=== PATIENT | male | born 1985 | race Caucasian/White ===

== ENCOUNTER 2017-07-29 01:49 | Emergency (ER) | payer SELFPAY ==
[2017-07-29] MEDS ORDERED: ACETYLCYSTEINE 20% SOLN 6000 MG/30 ML VIAL PO ONE (01:54)
--- NOTE | 2017-07-29 02:07 | ER Document Report ---
ED Substance Abuse / Acc. OD - General Chief Complaint: Overdose Stated Complaint: POSSIBLE OVERDOSE Time Seen by Provider: 07/29/17 01:54 Mode of Arrival: Medic Information source: Patient Notes: Patient is a 32-year-old male who presents to the ER today for taking 30-40 Tylenol after drinking multiple beers tonight. Friend states that he has tried to harm himself in the past, they also state that he has been talking about killing himself all night tonight. When I asked him why he took 70 Tylenol he states "I just wanted to get rid of a headache." He denies suicidal or homicidal ideations. Friends disagree. - Related Data Allergies/Adverse Reactions: No Known Allergies Allergy (Verified 07/29/17 09:22) Past Medical History - General Information source: Patient - Social History Smoking Status: Current Every Day Smoker Family History: Reviewed & Not Pertinent Review of Systems - Review of Systems Constitutional: No symptoms reported EENT: No symptoms reported Cardiovascular: No symptoms reported Respiratory: No symptoms reported Gastrointestinal: No symptoms reported Genitourinary: No symptoms reported Male Genitourinary: No symptoms reported Musculoskeletal: No symptoms reported Skin: No symptoms reported Hematologic/Lymphatic: No symptoms reported Neurological/Psychological: See HPI Physical Exam - Vital signs Vitals: Temp Pulse Resp BP Pulse Ox 97.8 F 92 16 131/88 H 97 07/29/17 01:51 07/29/17 01:51 07/29/17 01:51 07/29/17 01:51 07/29/17 01:51 - Notes Notes: PHYSICAL EXAMINATION: GENERAL: Angry, acutely intoxicated, in no acute distress. HEAD: Atraumatic, normocephalic. EYES: Pupils equal round and reactive to light, extraocular movements intact, sclera anicteric, conjunctiva are normal. ENT: ear canals without erythema or foreign body, TMs pearly schwab with good bony landmarks, nares patent, oropharynx clear without exudates. Moist mucous membranes. Airway patent NECK: Normal range of motion, supple without lymphadenopathy LUNGS: CTAB and equal. No wheezes rales or rhonchi. HEART: Regular rate and rhythm without murmurs ABDOMEN: Soft, no tenderness. No guarding, no rebound BACK: no vertebral tenderness, normal ROM GI/: no CVA tenderness EXTREMITIES: Normal range of motion, no pitting edema. No cyanosis. NEUROLOGICAL: Cranial nerves grossly intact. Normal sensory/motor exams. PSYCH: Agitated SKIN: Warm, Dry, normal turgor, no rashes or lesions noted Course - Re-evaluation Re-evalutation: 07/29/17 06:46 Patient was given acetylcysteine on arrival due to history of taking approximately 30-40 Tylenol that he told paramedics about. Tylenol levels on arrival and after 4 hours were less than 10. Salicylate levels also less than 10, alcohol 228. Patient is very agitated the entire time here and required Benadryl, Haldol and Ativan to stop harassing staff and threatening friends and staff. Friends insist that if I release him he will kill himself. 07/29/17 21:56 - Vital Signs Vital signs: Temp Pulse Resp BP Pulse Ox 97.4 F 73 18 103/46 L 95 07/29/17 09:58 07/29/17 09:58 07/29/17 09:58 07/29/17 09:58 07/29/17 09:58 - Laboratory Result Diagrams: 07/29/17 01:50 07/29/17 01:50 Laboratory results interpreted by me: 07/29/17 07/29/17 07/29/17 01:50 01:50 05:40 WBC 10.6 H Sodium 150.4 H Chloride 109 H Glucose 111 H Total Protein 8.4 H Salicylates < 1.0 L Acetaminophen < 10 L < 10 L Discharge - Discharge Clinical Impression: Suicidal ideations Alcohol intoxication Qualifiers: Complication of substance-induced condition: uncomplicated Qualified Code(s): F10.920 - Alcohol use, unspecified with intoxication, uncomplicated Condition: Stable Disposition: PSYCH HOSP/UNIT
[2017-07-29 02:09] LABS: ABSOLUTE BASOPHILS # (AUTO) 0.1 10^3/uL (0.0-0.2); ABSOLUTE EOSINOPHILS # (AUTO) 0.6 10^3/uL (0.0-0.6); ABSOLUTE LYMPHOCYTES (AUTO) 3.9 10^3/uL (0.5-4.7); ABSOLUTE MONOCYTES (AUTO) 0.6 10^3/uL (0.1-1.4); ABSOLUTE NEUT (AUTO) 5.4 10^3/uL (1.7-8.2); BASOPHILS % (AUTO) 1.1 % (0-2); EOSINOPHILS % (AUTO) 5.3 % (0-6); HEMATOCRIT 46.5 % (37.9-51.0); HEMOGLOBIN 16.4 g/dL (13.5-17.0); LYMPHOCYTES % (AUTO) 37.1 % (13-45); MEAN CORPUSCULAR HEMOGLOBIN 33.1 pg (27.0-33.4); MEAN CORPUSCULAR HGB CONC 35.4 g/dL (32.0-36.0); MEAN CORPUSCULAR VOLUME 94 fl (80-97); MONOCYTES % (AUTO) 5.7 % (3-13); PLATELET COUNT 234 10^3/uL (150-450); RED BLOOD COUNT 4.96 10^6/uL (4.35-5.55); RED CELL DISTRIBUTION WIDTH 12.3 % (11.5-14.0); SEGMENTED NEUTROPHILS % (AUTO) 50.8 % (42-78); TOTAL CELLS COUNTED % (AUTO) 100 %; WHITE BLOOD COUNT 10.6 10^3/uL (4.0-10.5)
[2017-07-29 02:17] LABS: APPEARANCE,URINE CLEAR; BILIRUBIN,URINE NEGATIVE (NEGATIVE); COLOR,URINE COLORLESS; GLUCOSE, URINE NEGATIVE (NEGATIVE); KETONES,URINE NEGATIVE (NEGATIVE); LEUKOCYTE ESTERASE,URINE NEGATIVE (NEGATIVE); NITRITE,URINE NEGATIVE (NEGATIVE); PROTEIN,URINE NEGATIVE (NEGATIVE); URINE SPECIFIC GRAVITY 1.002; UROBILINOGEN,URINE NEGATIVE mg/dL (<2.0)
[2017-07-29 02:27] LABS: ALANINE AMINOTRANSFERASE 30 U/L (21-72); ALCOHOL 228 mg/dL (NONE DETECTED); ALKALINE PHOSPHATASE 61 U/L (38-126); ANION GAP 15 (5-19); ASPARTATE AMINO TRANSFERASE 24 U/L (17-59); BILIRUBIN,DIRECT 0.4 mg/dL (0.0-0.4); BILIRUBIN,TOTAL 0.5 mg/dL (0.2-1.3); BLOOD UREA NITROGEN 9 mg/dL (7-20); CALCIUM 9.8 mg/dL (8.4-10.2); CARBON DIOXIDE 26 mmol/L (22-30); CHLORIDE 109 mmol/L (98-107); GLUCOSE 111 mg/dL (75-110); POTASSIUM 4.3 mmol/L (3.6-5.0); SODIUM 150.4 mmol/L (137-145); TOTAL PROTEIN 8.4 g/dL (6.3-8.2)
[2017-07-29] MEDS ORDERED: ZIPRASIDONE HCL 20 MG CAPSULE PO ONE (02:27)
[2017-07-29 02:28] LABS: ACETAMINOPHEN < 10 ug/mL (10-30); SALICYLATE < 1.0 mg/dL (2.0-20.0)
[2017-07-29 02:39] LABS: URINE AMPHETAMINES SCREEN NEGATIVE; URINE BARBITURATES SCREEN NEGATIVE; URINE BENZODIAZEPINES SCREEN NEGATIVE; URINE COCAINE SCREEN NEGATIVE; URINE MARIJUANA (THC) SCREEN NEGATIVE; URINE METHADONE SCREEN NEGATIVE; URINE PHENCYCLIDINE SCREEN NEGATIVE
[2017-07-29] MEDS ORDERED: DIPHENHYDRAMINE HCL 50 MG/ML VIAL IM ONE (02:53)
[2017-07-29] MEDS ORDERED: HALOPERIDOL LACTATE INJ 5 MG/1 ML VIAL IV ONE (04:49)
[2017-07-29] MEDS ORDERED: LORAZEPAM INJ 2 MG/1 ML VIAL IV ONE (04:49)
[2017-07-29] MEDS ORDERED: DIPHENHYDRAMINE HCL 50 MG/ML VIAL IV ONE (04:49)
[2017-07-29] MEDS ORDERED: HALOPERIDOL LACTATE INJ 5 MG/1 ML VIAL ONE (04:51)
[2017-07-29] MEDS ORDERED: LORAZEPAM INJ 2 MG/1 ML VIAL ONE (04:51)
[2017-07-29] MEDS ORDERED: DIPHENHYDRAMINE HCL 50 MG/ML VIAL ONE (04:52)
--- NOTE | 2017-07-29 10:18 | EKG REPORT ---
SEVERITY:- BORDERLINE ECG - SINUS TACHYCARDIA BORDERLINE INFERIOR Q WAVES : Confirmed by: Kaur Sandoval 29-Jul-2017 10:18:26
--- NOTE | 2017-07-29 10:29 | ER Document Report ---
Doctor's Note Notes: 07/29/17 10:28 Rounds: Chart reviewed and patient interviewed. Patient reportedly took an overdose of 40 Tylenol tablets, but his Tylenol levels at 2 different times showed less than 10 which is suggestive that the patient did not take any Tylenol and overdose. He was drinking heavily and his alcohol level was 228. All other labs essentially unremarkable. Vital signs are all normal. Patient appears to be medically stable for transfer or discharge. Karen Groves MD
--- NOTE | 2017-07-29 15:50 | PSYCHOLOGICAL NOTE ---
Psych Note - Psych Note Psych Note: Reason for consult: Alochol intoxication, SI Contact permissions: Friend Leobardo [phone] Patient is a 32 year old male who presented to the ED senior support analyst hours via EMS for Alcohol intoxication (Serum Alcohol Level upon arrival to ED was 228) and intentional OD of 30-40 Tylenol (No Acetaminophen or Salicylate levels). Patient was subsequently petitioned for 24 hour IVC via attending ED Physician. Patient was asleep. He was not easily aroused but once awake quickly became alert and oriented. He knew he was in a hospital, at first he said [place] then quickly said no [facility]. He denied SI and OD attempt. He reported I had a headache, took a bunch of Tylenol because it wasnt working, said he did not say he took 30-40 Tylenol and denied making SI comments to friends. He admitted to drinking last night, said it was [employer] and said it was a 6 pack which is common for him to drink this amount regularly. He denied mental health history to include inpatient hospitalizations. When confronted about any recent stress, worries or changes in his life he said no. He stated Im just tired. He went right to eating breakfast towards the end of the assessment. Patient became alert and oriented to person, place, and situation quickly after waking up. Mood was depressed with flat affect (note may be due to sobering up from alcohol). He was somewhat guarded and not forth coming (based on collateral obtained from friend), often answering with short close ended responses. He denied current SI/HI, denied making comments or taking Tylenol for anything other than a headache and denied previous attempts. He did not appear to be responding to internal stimuli as evidenced by fair eye contact, answering questions appropriately when addressed and staying on topic. Thought processes were slowed (likely from sobering up from Alcohol, being woke up out of sleep) but otherwise linear. Conversational speech was soft in tone and within normal limits for rate and prosody. Intellectual abilities are estimated to be average. Insight, judgment and impulse control were fair to poor given sobering up and his story being very different from friends. Patient gave verbal consent to contact his friend, Leobardo ([phone]). He identified a recent breakup with girlfriend, SI statements over the past couple weeks especially when drinking which is frequently, a couple weeks ago friend had to take his (friends) gun back (had let patient borrow it for range) via choking patient out due to specific comments about using gun to kill self, last week while drunk decided to try to walk in nothing but a pair of shorts from [place] (where friend lives) to [place] (were patient lives), and last night another friend finding a Tylenol (Equate brand) bottle with pills scattered all over couch and floor (as if spilled or ddumped) as well as patient being on FB live with knife in hand looking like he was going to cut his wrist. Friend stated he met up with friend later in the night after patient had been out with someone else drinking. They stayed at friends house in [place] for awhile talking then friend took patient home and helped him to bed. Friend stated he waited outside for 30 minutes before leaving ensuring patient did not try to leave. Friend identified before he made it all the way home to [place] another friend called saying patient was in the ambulance being taken to the hospital for OD. Friend said patient had been making comments like Im better off not here, I should just kill myself and last night said he took a handful of pills. He stated patients mother resides in [place] and they are not on good terms. Diagnosis: 303.90 (F10.20) Alcohol Use Disorder, Moderate 311 (F32.9) Unspecified Depressive Disorder (may be situational and related to break up) Impression/Plan: Recommendation to maintain 24 hour petition given friend/ collateral information that patient had a recent breakup and over the past two weeks he has been expressing SI (2 weeks ago said would use his friend's gun he borrowed to kill himself and they had to remove it from him) and last evening he said he just wanted to then a friend saw a bottle of acetaminophen spilled over with pills scattered on the couch and floor and he went onn FB live with knife acting as if he was goiing to cut his wrist). Started medication. Will reassess in the morning. Friend is a natural support and can be utilized in plan of care for discharge. Consulted with Dr. Hinds regarding the management and care of patient. ED Physician in agreement with recommendations. Medication recommendations made by the psychiatric medical provider, Dr. Beth YOUSIF, include: Add Effexor 37.5MG twice a day for depression
[2017-07-29] MEDS: VENLAFAXINE HCL 37.5 MG CAP.SR.24H PO SCH (18:22)
[2017-07-30] MEDS: VENLAFAXINE HCL 37.5 MG CAP.SR.24H PO SCH (10:02)
--- NOTE | 2017-07-30 10:58 | ER Document Report ---
Doctor's Note Notes: 07/30/17 10:50 Talked with patient who reports that he was brought in for suspected overdose as an attempt to kill himself and he denies ever trying to overdose and kill himself. Pt states that the pills his roommates found all over the ground were Aspirin which he accidentally spilled due to his drunkenness last night. He was not aware of the dangers of taking too many Aspirin but denies any SI or HI. Pt reports that he had quit drinking alcohol recently and was able to easily quit without withdrawals or be tempted to drink when around others who drink. He states that he had gotten in a fight with his ex-girlfriend and then decided to drink again and kept drinking until it was too much, he denies being at risk for withdrawals. I informed patient of plan to discharge home with plan to treat with a Rx for Effexor. Pt is comfortable with plan and is willing to try Effexor. PE: Patient is alert and appears well. Lungs are clear, no respiratory distress. Heart with regular rate and rhythm, no murmurs, gallops or rubs. (SYLVIA DEJESSU)
[2017-07-30 11:07] VITALS: BP 142/89
--- NOTE | 2017-07-30 16:08 | PSYCHOLOGICAL NOTE ---
Psych Note - Psych Note Psych Note: Reason for Consult: Suicidal ideation Patient is a 32-year-old male who presents to the ER today for taking 30-40 Tylenol after drinking multiple beers tonight. Friend states that he has tried to harm himself in the past, they also state that he has been talking about killing himself all night tonight. When I asked him why he took 70 Tylenol he states "I just wanted to get rid of a headache." He denies suicidal or homicidal ideations. Friends disagree. Clinician conducted checking with patient: Patient disclosed that he is feeling "fine." He states that he came to [facility] ED via EMS because "they said I tried to kill myself." Patient was able to continue to identify "they" was a couple of his friends. He disclosed that he had a headache so he attempted to take some Tylenol but he was also "inebriated. " Patient confirms that he and his girlfriend broke up which was the "basis" of the patient's friends thinking he wanted to harm himself. He denies this stating that he has plans starting a new job. 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 He disclosed that he was not concerned about missing the day because he will be able to show his new work that he was here at [facility]. when asked about patient's living arrangements he stated that he currently lives with a friend however if he is unable to return there he states "I can always go home to my family is not a big deal there only 2 hours away." Patient identifies Leobardo as his "best friend" and confirms he is part of the discharge plan. Chart review conducted: Patient's toxicology screening indicates no acetaminophen and patient was under the influence. Medication recommendations per [facility]'s contracted psychiatrist, Dr. Beth YOUSIF, include: 1. Effexor 37.5MG twice a day for depression Impression\\plan: Patient is recommended for rescind of IVC and is considered psychiatrically clear for discharge. Patient no longer meets IVC criteria per [place] GS 120 2C. Patient is no longer intoxicated and denies current suicidal ideation. He confirms that he did have a recent breakup and has been sad however denies disclosing any suicidal comments. There was some concern that the patient 2 weeks ago disclosing wanting to shoot himself however patient does not have access to any weapons; Patient's previous access was to a friend' s weapon which has now been removed and patient does not have access. Friend, Leobardo, is a natural support and is part of the plan of care for discharge. Consulted with Dr. Hinds regarding the management and care of patient. ED Physician in agreement with recommendations.
== END 2017-07-30 10:57 | disposition home or self-care (01) ==
LOC: ER 01:49
DX: R45.851 Suicidal ideations (principal); T39.1X2A Poisoning by 4-Aminophenol derivatives, intentional self-harm, initial encounter; X58.XXXA Exposure to other specified factors, initial encounter; F17.200 Nicotine dependence, unspecified, uncomplicated; F10.920 Alcohol use, unspecified with intoxication, uncomplicated; Y90.7 Blood alcohol level of 200-239 mg/100 ml; F32.9 Major depressive disorder, single episode, unspecified
CPT/HCPCS: 93005; 99285; 96372; 96374; 96375; 36415; 80307 ×4; 85025; 80053; 81001; 93010; J7604; J1200; J3490 ×2; J1630; J2060